=== PATIENT | male | born 1950 | race Caucasian/White ===

== ENCOUNTER → 2023-10-11 06:36 | Day surgery (SDC) | payer MEDICARE, OTHER, SELFPAY | LOC: GI 06:36 | PROVIDERS: ATTENDING PHYSICIAN Specialist; FAMILY PHYSICIAN Family Medicine | DX: C16.0 Malignant neoplasm of cardia (principal); C15.5 Malignant neoplasm of lower third of esophagus; K22.70 Barrett's esophagus without dysplasia; R63.0 Anorexia; R63.4 Abnormal weight loss; R68.81 Early satiety; K25.9 Gastric ulcer, unspecified as acute or chronic, without hemorrhage or perforation | CPT/HCPCS: 43239; 88305; 88342; 88360 ==

== ENCOUNTER → 2023-10-16 13:49 | Outpatient (REF) | payer MEDICARE, OTHER, SELFPAY | LOC: RAD 13:49 | PROVIDERS: ATTENDING PHYSICIAN Specialist; FAMILY PHYSICIAN Family Medicine | DX: K31.89 Other diseases of stomach and duodenum (principal) | CPT/HCPCS: 71270; 74178; Q9967 ==

== ENCOUNTER → 2024-12-23 07:20 | Outpatient (REF) | payer MEDICARE, OTHER, SELFPAY | LOC: MRI 07:20 | PROVIDERS: ATTENDING PHYSICIAN Internal Medicine Hematology & Oncology; FAMILY PHYSICIAN Family Medicine | DX: C15.9 Malignant neoplasm of esophagus, unspecified (principal); C15.5 Malignant neoplasm of lower third of esophagus; C16.2 Malignant neoplasm of body of stomach; Z79.899 Other long term (current) drug therapy; D50.8 Other iron deficiency anemias; D64.81 Anemia due to antineoplastic chemotherapy; R53.83 Other fatigue; M25.532 Pain in left wrist | CPT/HCPCS: 70553; A9575 ==